=== PATIENT | male | born 1990 | race African-American/Black ===

== ENCOUNTER 2016-03-24 16:19 | Emergency (ER) | payer BC ==
[~2016-03-24] VITALS: Ht 182.9 cm; Wt 59.0 kg
[2016-03-24 16:55] VITALS: BP 110/54
[2016-03-24] MEDS ORDERED: Cyclobenzaprine 10mg Tab ORAL ONE (17:30)
[2016-03-24] MEDS ORDERED: CYCLOBENZAPRINE10 MG ORAL (18:18)
[2016-03-24] MEDS ORDERED: IBUPROFEN600 MG ORAL (18:18)
[2016-03-24 18:34] VITALS: BP 110/54
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
== END 2016-03-24 18:25 | disposition home or self-care (01) ==
LOC: EMR 17:09
DX: S16.1XXA Strain of muscle, fascia and tendon at neck level, initial encounter (principal); V43.62XA Car passenger injured in collision with other type car in traffic accident, initial encounter; Y92.410 Unspecified street and highway as the place of occurrence of the external cause
CPT/HCPCS: 72040; 99284